=== PATIENT | male | born 1975 | race Caucasian/White ===

== ENCOUNTER 2016-04-30 | Inpatient (IN) | payer MEDICAID, OTHER ==
[~2016-04-30] VITALS: Ht 177.8 cm; Wt 72.1 kg
[2016-04-30 00:50] VITALS: BP 119/57; PULSE 100; RESP 18; TEMP 98.9; O2SAT 95
[2016-04-30] MEDS ORDERED: APIDINJ SQ (00:50)
[2016-04-30] MEDS ORDERED: LANTUS2P SQ (00:50)
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
[2016-04-30] MEDS: MORPHINE SULFATE 4 MG/ML INJ IV PRN ×6 (01:51→18:11)
[2016-04-30 06:37] VITALS: BP 119/70; PULSE 94; PULSE 98; RESP 18; O2SAT 100; O2SAT 98
[2016-04-30 07:30] VITALS: BP 121/75; PULSE 102; RESP 18; O2SAT 100
[2016-04-30] MEDS ORDERED: ENALAPRILAT 1.25 MG/ML VIAL IV PRN (07:30)
[2016-04-30] MEDS ORDERED: GLUCAGON 1 MG/ML VIAL OTHER PRN (07:30)
[2016-04-30] MEDS ORDERED: ONDANSETRON HCL 4 MG/2 ML VIAL IV PRN (07:30)
[2016-04-30] MEDS ORDERED: SODIUM CHLORIDE 0.9% FLUSH 10 ML FLUSH IV FLUSH PRN (07:30)
[2016-04-30] MEDS ORDERED: DEXTROSE 50% IN WATER 50 ML VIAL(D50) IV PUSH PRN (07:30)
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
[2016-04-30] MEDS: DOCUSATE SODIUM 50 MG/SENNA 8.6 MG TAB PO SCH (09:00)
[2016-04-30] MEDS: BACITRACIN TOP OINT 15 GM TUBE TOP SCH ×2 (09:00→22:31)
[2016-04-30] MEDS: KETOROLAC TROMETHAMINE 30 MG/ML (IVP) VIAL IVP SCH ×3 (09:05→21:50)
[2016-04-30] MEDS: METHOCARBAMOL 500 MG TAB PO SCH ×2 (09:05→18:09)
[2016-04-30] MEDS: FAMOTIDINE 20 MG TAB PO SCH ×2 (09:05→21:50)
[2016-04-30 09:42] LABS: HEMATOCRIT 36.2 % (39.0-51.0); MEAN CELL VOLUME 95.9 FL (80.0-100.0); MEAN CORPUSCULAR HEMOGLOBIN 33.9 PG (27.0-34.0); MEAN CORPUSCULAR HGB CONC 35.4 % (32.0-36.0); PLATELET COUNT 152 TH/MM3 (150-450); RED BLOOD COUNT 3.77 MIL/MM3 (4.50-5.90); RED CELL DISTRIBUTION WIDTH 13.7 % (11.6-17.2); REVIEW FLAG FINAL; WHITE BLOOD COUNT 6.8 TH/MM3 (4.0-11.0)
[2016-04-30 09:49] LABS: ANION GAP 11 MEQ/L (5-15); AST (GOT) 73 U/L (15-37); BICARBONATE 28.2 MEQ/L (21.0-32.0); BLOOD UREA NITROGEN 9 MG/DL (7-18); CHLORIDE 99 MEQ/L (98-107); GLOMERULAR FILTRATION RATE 130 ML/MIN (>89); SODIUM (NA) 138 MEQ/L (136-145)
[2016-04-30 09:52] LABS: ALKALINE PHOSPHATASE 44 U/L (45-117); ALT (GPT) 58 U/L (12-78); TOTAL BILIRUBIN ADULT 1.3 MG/DL (0.2-1.0)
[2016-04-30] MEDS: INSULIN NovoLIN REGULAR SUPPLEMENTAL SCALE SQ SCH ×3 (10:50→22:31)
[2016-04-30 12:00] VITALS: BP 118/73; PULSE 101; RESP 22; O2SAT 95
[2016-04-30 16:00] VITALS: BP 113/64; PULSE 96; RESP 16; TEMP 97.7; O2SAT 96
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
[2016-04-30 19:30] VITALS: BP 110/68; PULSE 111; RESP 18; TEMP 99.1; O2SAT 98
[2016-04-30] MEDS: oxyCODONE/ACETAMINOPHEN 5 MG/325 MG TAB PO PRN (21:49)
[2016-05-01] VITALS (8 sets, daily range): BP systolic 91–122; BP diastolic 54–87; PULSE 95–107; RESP 18–20; TEMP 97.2–100; O2SAT 93–100
[2016-05-01] MEDS: METHOCARBAMOL 500 MG TAB PO SCH ×3 (02:15→16:06)
[2016-05-01] MEDS: KETOROLAC TROMETHAMINE 30 MG/ML (IVP) VIAL IVP SCH ×4 (02:15→20:18)
[2016-05-01] MEDS: oxyCODONE/ACETAMINOPHEN 5 MG/325 MG TAB PO PRN ×3 (03:11→20:17)
[2016-05-01] MEDS: INSULIN NovoLIN REGULAR SUPPLEMENTAL SCALE SQ SCH ×4 (06:25→19:48)
[2016-05-01] MEDS: BACITRACIN TOP OINT 15 GM TUBE TOP SCH ×2 (09:00→20:18)
[2016-05-01] MEDS: FAMOTIDINE 20 MG TAB PO SCH ×2 (09:09→20:18)
[2016-05-01] MEDS: DOCUSATE SODIUM 50 MG/SENNA 8.6 MG TAB PO SCH (09:09)
[2016-05-01] MEDS: POLYETHYLENE GLYCOL 17 GM PKG PO SCH (09:15)
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
[2016-05-01] MEDS: MORPHINE SULFATE 4 MG/ML INJ IV PRN ×2 (12:12→14:51)
[2016-05-01] MEDS ORDERED: IOHEXOL 350 MG/ML 10 ML VIAL (for RAD DIAG) IV ONE (15:11)
--- NOTE | 2016-05-01 17:28 | RADRPT ---
EXAM DATE/TIME: 05/01/2016 15:07 [facility] COMPARISON: CHEST SINGLE AP, April 30, 2016, 7:32. INDICATIONS : Pulmonary contusion and hemothorax. IV CONTRAST: 73 cc Omnipaque 350 (iohexol) IV RADIATION DOSE: 9.89 CTDIvol (mGy) MEDICAL HISTORY : Diabetes mellitus type 2. SURGICAL HISTORY : None. ENCOUNTER: Initial ACUITY: 1 day PAIN SCALE: 6/10 LOCATION: Left lower chest TECHNIQUE: Volumetric scanning of the chest was performed. Using automated exposure control and adjustment of t he mA and/or kV according to patient size, radiation dose was kept as low as reasonably achievable to obtain optimal diagnostic quality images. FINDINGS: The examination demonstrates a large left pneumothorax. There are consolidative changes in the left l ower lobe. The right lung demonstrates an area of fairly diffuse infiltrate in the right lower lobe concerning f or contusion or aspiration. The cardiac and mediastinal contours are within normal limits. No adenopathy is seen. Bone windowed images demonstrate fracture of the left third through eighth lateral ribs with subcutan eous emphysema. The limited portions of upper abdomen visualized are unremarkable. CONCLUSION: 1. Large left pneumothorax. 2. Consolidation of the left lung base. 3. Contusion versus aspiration in the right lower lobe. 4. Fracture of the left third through eighth ribs with subcutaneous emphysema. Anshu Velez MD on May 01, 2016 at 17:01 Board Certified Radiologist. This report was verified electronically.
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
[2016-05-01] MEDS ORDERED: LIDOCAINE 1%/EPINEPHrine 1:100,000 SOLN 20 ML VIAL ONE (18:11)
[2016-05-01] MEDS ORDERED: MIDAZOLAM HCL 2 MG/2 ML VIAL ONE (18:14)
--- NOTE | 2016-05-01 19:01 | PD.RAD ---
Post Procedure Progress Note Pre Procedure Diagnosis: (1) Pneumothorax, left Post Procedure Diagnosis: (1) Pneumothorax, left Procedure Date: May 01, 2016 Supervising Radiologist: Anshu Velez Estimated blood loss: 5cc Anesthesia: Local, Conscious Sedation Plan of Activity Patient to Unit: Critical Care Patient Condition: Good Additional Comments: 20 [place]alan left chest tube placed Complete reinflation of the left lung Full dictated report to follow See PACS Report for procedural detail/treatment Anshu Velez MD May 01, 2016 19:01
--- NOTE | 2016-05-01 19:33 | RADRPT ---
EXAM DATE/TIME: 05/01/2016 19:09 [facility] COMPARISON: No previous studies available for comparison. INDICATIONS : Chest tube placement. MEDICAL HISTORY : Diabetes mellitus type II. SURGICAL HISTORY : None. ENCOUNTER: Subsequent ACUITY: 1 day PAIN SCORE: 3/10 LOCATION: chest FINDINGS: There is a left-sided chest tube with a tiny left apical pneumothorax. Bibasilar airspace disease pre sent. Air is present in the left chest wall. Multiple left rib fractures. CONCLUSION: 1. Left chest tube with tiny apical pneumothorax. Basal airspace disease. Multiple left rib fractures . Markos Jaimes MD on May 01, 2016 at 19:30 Board Certified Radiologist. This report was verified electronically.
[2016-05-02] MEDS: METHOCARBAMOL 500 MG TAB PO SCH ×3 (00:30→16:51)
[2016-05-02] MEDS: oxyCODONE/ACETAMINOPHEN 5 MG/325 MG TAB PO PRN ×4 (00:31→21:00)
[2016-05-02] MEDS: KETOROLAC TROMETHAMINE 30 MG/ML (IVP) VIAL IVP SCH ×4 (04:57→20:47)
[2016-05-02] MEDS: INSULIN NovoLIN REGULAR SUPPLEMENTAL SCALE SQ SCH ×2 (06:07→11:00)
[2016-05-02 06:11] VITALS: BP 108/65; PULSE 101; RESP 18; TEMP 98.3; O2SAT 97
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
[2016-05-02] MEDS ORDERED: VANCOMYCIN HCL 1000 MG VIAL ONE (08:03)
[2016-05-02] MEDS ORDERED: SODIUM CHLOR 0.9% 250 ML INJ 250 ML ONE (08:04)
[2016-05-02] MEDS ORDERED: GENTAMICIN SULFATE 80 MG/2 ML VIAL ONE (08:04)
[2016-05-02] MEDS ORDERED: BUPIVACAINE/EPINEPHRINE 0.25% PF 10 ML VIAL ONE (08:04)
--- NOTE | 2016-05-02 08:05 | RADRPT ---
EXAM DATE/TIME: 05/02/2016 07:28 [facility] COMPARISON: CT THORAX W CONTRAST, May 01, 2016, 15:07. CHEST EXPIRATION ONLY, May 01, 2016, 19:09. INDICATIONS : Pneumothorax. MEDICAL HISTORY : None. SURGICAL HISTORY : None. ENCOUNTER: Subsequent ACUITY: 2 days PAIN SCORE: 6/10 LOCATION: Left Ribs. FINDINGS: Single view of the chest demonstrates a left-sided chest tube in good position. There is no residual pneumothorax. There are atelectatic changes in the left lower lobe. There is a small amount of subcut aneous emphysema along the left chest wall. There are known multiple left rib fractures which are aga in visible. CONCLUSION: 1. Left chest tube in good position with no evidence of residual pneumothorax. 2. Atelectatic changes in the left lower lobe. Anhsu Velez MD on May 02, 2016 at 8:02 Board Certified Radiologist. This report was verified electronically.
[2016-05-02] MEDS ORDERED: MIDAZOLAM HCL 2 MG/2 ML VIAL ONE (08:09)
[2016-05-02] MEDS ORDERED: FAMOTIDINE 20 MG/2 ML VIAL ONE (08:09)
--- NOTE | 2016-05-02 08:09 | RADRPT ---
EXAM DATE/TIME: 05/01/2016 18:40 INDICATIONS : Left sided pneumothorax. SEDATION TIME: 15 minutes MEDICATION(S): 1.) 2 mg midazolam (Versed) IV 2.) 100 mcg fentanyl (Sublimaze) IV DEVICE(S): 1.) 20fr Trocar MEDICAL HISTORY : None. SURGICAL HISTORY : None. ENCOUNTER: Initial ACUITY: 1 day PAIN SCORE: 5/10 LOCATION: Left chest PROCEDURE: PROCEDURE : 1. CT guided chest tube placement. 2. Conscious sedation with continuous EKG and oximetry monitoring. The risks, benefits and alternatives to the procedure were explained and verbal and written consent w as obtained. The site was prepped in sterile fashion. Full sterile technique was used, including ca p, mask, sterile gloves and gown and a large sterile sheet. Hand hygiene and 2% chlorhexidine and/or betadine/alcohol prep was utilized per protocol for cutaneous antisepsis. The skin and subcutaneous tissues were infiltrated with local anesthetic solution. Using automated exposure control and adjus tment of the mA and/or kV according to patient size, radiation dose was kept as low as reasonably ach ievable to obtain optimal diagnostic quality images. With CT guidanc a suitable site along the left chest wall was selected. The skin in the midaxillary l ine was anesthetized with 15 cc 1% lidocaine. A small incision was made. A 20 [place] chest tube was a dvanced through the incision and into the thorax without difficulty. Wall suction was applied. Post procedure images demonstrate satisfactory position of the tube and complete reinflation of the left l jordan.. The catheter was sutured in place and a dressing was applied. Note is again made of the area of contusion or infiltrate in the right lower lobe and consolidative c hanges in the left lower lobe. Conscious sedation was performed with the prescribed dosages and duration as above. The patient lindsey ated the procedure well and there were no complications. EKG and oximetry remained stable throughout the procedure. The patient was sent to post anesthesia recovery in stable condition. CONCLUSION: Uncomplicated chest tube placement as above. Anshu Velez MD on May 02, 2016 at 8:04 Board Certified Radiologist. This report was verified electronically.
[2016-05-02] MEDS ORDERED: fentaNYL CITRATE 250 MCG/5 ML AMP ONE (08:36)
[2016-05-02] MEDS ORDERED: DEXAMETHASONE SOD PHOS 20 MG/5 ML VIAL ONE (08:36)
[2016-05-02] MEDS ORDERED: ACETAMINOPHEN 1000 MG/100 ML VIAL IV ONE (08:36)
[2016-05-02 08:37] VITALS: BP 117/63; PULSE 94; RESP 17; TEMP 98.3; O2SAT 94
[2016-05-02] MEDS ORDERED: DEXAMETHASONE SOD PHOS 4 MG/ML VIAL ONE (08:37)
[2016-05-02] MEDS: DOCUSATE SODIUM 50 MG/SENNA 8.6 MG TAB PO SCH ×3 (09:00→20:47)
[2016-05-02] MEDS: BACITRACIN TOP OINT 15 GM TUBE TOP SCH ×2 (09:00→20:56)
[2016-05-02] MEDS: POLYETHYLENE GLYCOL 17 GM PKG PO SCH ×2 (09:00→14:00)
[2016-05-02] MEDS: FAMOTIDINE 20 MG TAB PO SCH ×2 (09:00→20:47)
[2016-05-02] MEDS ORDERED: ceFAZolin 2 GM PREMIX 50 ML ONE (09:33)
[2016-05-02] MEDS ORDERED: HYDR-3366 PO (10:45)
--- NOTE | 2016-05-02 10:51 | PD.OP ---
cc: Sunny Suarez MD Operative Report Date of Surgery: May 02, 2016 Preoperative Diagnosis: Displaced left clavicle fracture Postoperative Diagnosis: Procedure: Open reduction internal fixation left clavicle Anesthesia: Gen. Surgeon: Sunny Suarez Shank Threader(s): PAYAL Pérez PA-C The surgical procedure was assisted by my physician doctor's assistant. My P.A. presence was necessary throughout this case for the manipulation and positioning of the surgical extremity. My P.A. was assisting me throughout the duration of this procedure. The skill set of a physician doctor's assistant was medically necessary to complete this procedure. During the surgical case the surgical scrub technician was working at the back table and the physician doctor's assistant was directly assisting me. Operation and Findings: Patient was seen and evaluated preoperatively. Patient was found to have a displaced clavicle fracture. The risks and benefits of surgical and nonsurgical options were discussed in detail and informed consent was obtained for surgery. Patient was brought to the operating room and placed on or table. IV sedation and GETA were administered by anesthesiologist. Antibiotics were given prior to incision. Operative arm and shoulder were prepped with alcohol followed by Hibiclens and draped usual sterile fashion. Timeout procedure was performed. Procedure began with a 4 inch incision over the anterior clavicle. Subcutaneous tissue was dissected with Bovie. The fracture was now visualized. Soft tissue was retracted. Fracture was cleaned with curettes. Attention was now turned to reduction. Gentle traction was applied and fracture tenaculums were used to reduce the fracture. Fracture was manipulated to achieve excellent reduction. Multiplanar fluoroscopy confirmed well aligned fracture. K wires were used to hold provisional fixation. A Synthes distal clavicle plate was selected. Plate was provisionally held in place K wires. 3.5 cortical screws were used to compress plate to bone. A 2.7 cortical screw was used to compress the plate to bone distally. Fluoroscopy confirmed appropriate plate placement and fracture reduction. Multiple screws were placed on each side of the fracture. Multiple locking screws were placed into the distal segment of the clavicle. All Screws were predrilled and premeasured for appropriate length. Care was taken to avoid injury to neurovascular structures. Final fluoroscopy revealed well aligned fracture with well-placed hardware. Wound was thoroughly irrigated. Fascia was closed with #1 Vicryl, subcutaneous tissues closed with 3-0 Vicryl, and skin was closed with arthur. Sterile dressings were applied. Patient was placed into a sling. Patient was awakened and transferred to recovery in stable condition. Needle and sponge counts were correct. Sunny Suarez MD May 02, 2016 10:50
--- NOTE | 2016-05-02 11:40 | RADRPT ---
EXAM DATE/TIME: 05/02/2016 10:28 [facility] COMPARISON: CHEST EXPIRATION ONLY, May 02, 2016, 7:28. INDICATIONS : Surgical repair. MEDICAL HISTORY : None. SURGICAL HISTORY : None. ENCOUNTER: Initial ACUITY: 1 day PAIN SCORE: Non-responsive. LOCATION: Left clavicle. FINDINGS: Intraoperative films demonstrate excellent alignment of the patient's left clavicular fracture post p lating. CONCLUSION: 1. Excellent alignment of the clavicle post plating. Anshu Velez MD on May 02, 2016 at 11:38 Board Certified Radiologist. This report was verified electronically.
[2016-05-02] MEDS ORDERED: DO NOT ADM ANY ANTICOAGULANT DRUGS XX PRN (12:00)
[2016-05-02] MEDS ORDERED: NEOSTIGMINE 3 MG/3 ML SYR IV ONE (12:00)
[2016-05-02] MEDS ORDERED: ePHEDrine/NS 25 MG/5 ML SYR IV ONE (12:00)
[2016-05-02] MEDS ORDERED: ONDANSETRON HCL 4 MG/2 ML VIAL IV PUSH ONE (12:00)
[2016-05-02] MEDS ORDERED: PROPOFOL 200 MG/20 ML AMP IV ONE (12:00)
[2016-05-02] MEDS ORDERED: INSULIN GLULISINE 1 UNIT SQ SCH (13:00)
[2016-05-02] MEDS: CALCIUM/VITAMIN D 250 MG/125 U TAB PO SCH ×2 (13:48→17:44)
[2016-05-02] MEDS: MORPHINE SULFATE 4 MG/ML INJ IV PRN (13:49)
[2016-05-02 16:00] VITALS: BP 113/61; PULSE 95; RESP 18; TEMP 96.9; O2SAT 94
[2016-05-02] MEDS: ceFAZolin 2 GM PREMIX 50 ML IV SCH (17:44)
[2016-05-02] MEDS ORDERED: GLUCAGON 1 MG/ML VIAL OTHER PRN (17:45)
[2016-05-02] MEDS: MORPHINE SULFATE 4 MG/ML INJ IV PUSH PRN ×2 (17:45→20:47)
[2016-05-02] MEDS ORDERED: DEXTROSE 50% IN WATER 50 ML VIAL(D50) IV PUSH PRN (17:45)
[2016-05-02 18:12] VITALS: O2SAT 94
[2016-05-02 20:00] VITALS: BP 120/63; PULSE 94; RESP 20; TEMP 96; O2SAT 96
[2016-05-02] MEDS: SODIUM CHLORIDE 0.9% FLUSH 5 ML FLUSH IVF SCH (20:48)
[2016-05-02] MEDS: INSULIN ASPART SUPPLEMENTAL SCALE SQ SCH (23:13)
[2016-05-03] VITALS (7 sets, daily range): BP systolic 101–125; BP diastolic 57–75; PULSE 83–104; RESP 18–20; TEMP 96.5–97.6; O2SAT 96–97
[2016-05-03] MEDS: ceFAZolin 2 GM PREMIX 50 ML IV SCH ×2 (00:17→10:00)
[2016-05-03] MEDS: MORPHINE SULFATE 4 MG/ML INJ IV PUSH PRN ×3 (00:17→16:05)
[2016-05-03] MEDS: METHOCARBAMOL 500 MG TAB PO SCH ×3 (00:17→16:10)
[2016-05-03] MEDS: SODIUM CHLORIDE 0.9% FLUSH 5 ML FLUSH IVF PRN ×3 (00:18→20:56)
[2016-05-03] MEDS: oxyCODONE/ACETAMINOPHEN 5 MG/325 MG TAB PO PRN ×4 (00:26→18:35)
[2016-05-03] MEDS: KETOROLAC TROMETHAMINE 30 MG/ML (IVP) VIAL IVP SCH ×4 (04:32→20:55)
[2016-05-03] MEDS: MORPHINE SULFATE 4 MG/ML INJ IV PRN ×3 (04:36→20:48)
[2016-05-03 06:14] LABS: AUTOMATED NEUTROPHIL # 9.5 TH/MM3 (1.8-7.7); BASOPHIL % 0.3 % (0.0-2.0); EOSINOPHIL % 0.2 % (0.0-4.0); HEMATOCRIT 33.8 % (39.0-51.0); HEMO FLAGS DIFF FINAL; LYMPH % 9.7 % (9.0-44.0); LYMPHOCYTE # 1.2 TH/MM3 (1.0-4.8); MEAN CELL VOLUME 99.8 FL (80.0-100.0); MEAN CORPUSCULAR HEMOGLOBIN 33.5 PG (27.0-34.0); MEAN CORPUSCULAR HGB CONC 33.5 % (32.0-36.0); MONO % 10.2 % (0.0-8.0); NEUT % 79.6 % (16.0-70.0); PLATELET COUNT 173 TH/MM3 (150-450); RED BLOOD COUNT 3.38 MIL/MM3 (4.50-5.90); RED CELL DISTRIBUTION WIDTH 13.5 % (11.6-17.2); WHITE BLOOD COUNT 11.9 TH/MM3 (4.0-11.0)
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
[2016-05-03] MEDS: INSULIN ASPART SUPPLEMENTAL SCALE SQ SCH ×4 (06:44→22:11)
[2016-05-03 06:59] LABS: ALKALINE PHOSPHATASE 65 U/L (45-117); ALT (GPT) 35 U/L (12-78); ANION GAP 20 MEQ/L (5-15); AST (GOT) 35 U/L (15-37); BICARBONATE 18.3 MEQ/L (21.0-32.0); BLOOD UREA NITROGEN 19 MG/DL (7-18); CHLORIDE 98 MEQ/L (98-107); GLOMERULAR FILTRATION RATE 85 ML/MIN (>89); POTASSIUM 4.8 MEQ/L (3.5-5.1); SODIUM (NA) 136 MEQ/L (136-145); TOTAL BILIRUBIN ADULT 0.9 MG/DL (0.2-1.0)
--- NOTE | 2016-05-03 07:24 | PD.ORT.PN ---
Subjective Subjective Remarks Yony is status post open reduction internal fixation left distal clavicle fracture on 05/02/16. He is awake and alert. Pain is relatively well controlled. Objective Vitals Vital Signs Date Time Temp Pulse Resp B/P Pulse Ox O2 Delivery O2 Flow Rate FiO2 05/03/16 04:00 97.6 100 20 102/62 96 05/03/16 00:00 96.5 104 20 112/57 96 05/02/16 20:00 96.0 94 20 120/63 96 05/02/16 18:12 94 21 05/02/16 16:00 96.9 95 18 113/61 94 05/02/16 12:00 89 18 112/66 95 Room Air 05/02/16 11:45 88 18 119/67 95 Room Air 05/02/16 11:30 87 18 114/65 96 Room Air 05/02/16 11:15 86 18 118/68 94 Room Air 05/02/16 10:59 98.1 96 18 121/71 97 Simple Mask 8 05/02/16 08:37 98.3 94 17 117/63 94 I/O 05/02/16 05/02/16 05/02/16 05/03/16 05/03/16 05/03/16 07:00 15:00 23:00 07:00 15:00 23:00 Intake Total 1240 ml 240 ml 240 ml Output Total 456 ml 50 ml 625 ml 400 ml Balance -456 ml 1190 ml -385 ml -160 ml Intake Oral 240 ml 240 ml 240 ml Other 1000 ml Output Urine Total 400 ml 500 ml 400 ml Chest Tube Drainage Total 56 ml 125 ml Estimated Blood Loss 50 ml # Voids 4 3 # Bowel Movements 0 0 0 Result Diagram: 05/03/1623 05/03/16 0523 Imaging Last 24 hours Impressions Chest X-Ray 05/03/16 0600 Signed Impressions: Service Date/Time: Tuesday, May 03, 2016 05:38 - CONCLUSION: 1. Some improvement in the bibasilar consolidations. 2. Left thoracostomy tube without pneumothorax. Dat Charlton Jr., MD Objective Remarks Yony is awake and alert. He appears comfortable LUE: Clean dry dressing intact. Intact sensation in all fingers. Radial pulses palpable. Assessment & Plan Assessment and Plan 1) Left Distal Clavicle Fx--status post ORIF on 05/02/16 Sling No use of left arm Clear for discharge from orthopedic standpoint once chest tube was removed Follow-up 2 weeks Sunny Lorenzana MD May 03, 2016 07:24
[2016-05-03] MEDS ORDERED: BISACODYL 10 MG SUPP RECTAL ONE (08:00)
[2016-05-03] MEDS ORDERED: BISACODYL EC 5 MG TABEC PO ONE (08:00)
[2016-05-03] MEDS: FAMOTIDINE 20 MG TAB PO SCH ×2 (08:19→20:52)
[2016-05-03] MEDS: CALCIUM/VITAMIN D 250 MG/125 U TAB PO SCH ×3 (08:19→16:11)
[2016-05-03] MEDS: ENOXAPARIN SODIUM 30 MG/0.3 ML SYRINGE SQ SCH ×2 (08:19→20:46)
[2016-05-03] MEDS: DOCUSATE SODIUM 50 MG/SENNA 8.6 MG TAB PO SCH ×2 (08:19→20:51)
[2016-05-03] MEDS: SODIUM CHLORIDE 0.9% FLUSH 5 ML FLUSH IVF SCH ×2 (08:20→20:49)
[2016-05-03] MEDS: POLYETHYLENE GLYCOL 17 GM PKG PO SCH (08:20)
[2016-05-03] MEDS: BACITRACIN TOP OINT 15 GM TUBE TOP SCH ×2 (08:33→21:00)
[2016-05-03] MEDS ORDERED: INSULIN DETEMIR 100 UNITS/ML VIAL SQ SCH (09:00)
--- NOTE | 2016-05-03 11:01 | EKG ---
Date Performed: 05/02/2016 Time Performed: 06:22:50 PTAGE: 41 years EKG: Sinus rhythm Normal ECG NO PREVIOUS TRACING DOCTOR: Maggie Mccauley Interpretating Date/Time 05/03/2016 10:58:18
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
[2016-05-03] MEDS ORDERED: DEXTROSE 50% IN WATER 50 ML VIAL(D50) IV PUSH PRN (13:45)
[2016-05-03] MEDS ORDERED: GLUCAGON 1 MG/ML VIAL OTHER PRN (13:45)
[2016-05-03] MEDS: INSULIN DETEMIR 100 UNITS/ML VIAL SQ SCH (20:52)
[2016-05-03] MEDS ORDERED: MAGNESIUM HYDROXIDE SUSP 30 ML CUP PO SCH (21:00)
[2016-05-03] MEDS ORDERED: SENN1TAB PO (21:55)
[2016-05-03] MEDS ORDERED: MILKSUS PO (21:55)
[2016-05-03] MEDS: ACETAMINOPHEN/HYDROcodone 325 MG/10 MG TAB PO PRN (22:18)
[2016-05-04] MEDS: METHOCARBAMOL 500 MG TAB PO SCH ×2 (00:18→09:11)
[2016-05-04] MEDS: MORPHINE SULFATE 4 MG/ML INJ IV PRN ×2 (00:21→06:57)
[2016-05-04] MEDS: SODIUM CHLORIDE 0.9% FLUSH 5 ML FLUSH IVF PRN (00:22)
[2016-05-04 00:27] VITALS: BP 120/66; PULSE 89; RESP 20; TEMP 97.3; O2SAT 96
[2016-05-04] MEDS: KETOROLAC TROMETHAMINE 30 MG/ML (IVP) VIAL IVP SCH ×3 (02:47→15:25)
[2016-05-04] MEDS: oxyCODONE/ACETAMINOPHEN 5 MG/325 MG TAB PO PRN (02:54)
[2016-05-04 06:03] VITALS: BP 113/60; PULSE 81; RESP 20; TEMP 96.5; O2SAT 95
[2016-05-04 06:09] LABS: ANION GAP 6 MEQ/L (5-15); BLOOD UREA NITROGEN 18 MG/DL (7-18); CHLORIDE 107 MEQ/L (98-107); GLOMERULAR FILTRATION RATE 116 ML/MIN (>89); POTASSIUM 3.3 MEQ/L (3.5-5.1); SODIUM (NA) 143 MEQ/L (136-145)
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
[2016-05-04] MEDS: INSULIN ASPART SUPPLEMENTAL SCALE SQ SCH ×3 (07:00→16:00)
--- NOTE | 2016-05-04 07:13 | PD.ORT.PN ---
Subjective Subjective Remarks POD 2 s/p ORIF left distal clavicle doing well. pain controlled. no complaints. Objective Vitals Vital Signs Date Time Temp Pulse Resp B/P Pulse Ox O2 Delivery O2 Flow Rate FiO2 05/04/16 06:03 96.5 81 20 113/60 95 05/04/16 04:01 16 05/04/16 04:01 16 05/04/16 00:46 16 05/04/16 00:27 97.3 89 20 120/66 96 05/03/16 23:35 16 05/03/16 20:00 96.8 83 20 125/75 97 05/03/16 17:22 96.8 91 18 110/67 97 05/03/16 12:57 97.6 92 18 109/60 96 05/03/16 08:59 97 21 05/03/16 08:30 97.0 103 18 101/61 97 I/O 05/03/16 05/03/16 05/03/16 05/04/16 05/04/16 05/04/16 07:00 15:00 23:00 07:00 15:00 23:00 Intake Total 240 ml 650 ml 240 ml Output Total 450 ml Balance -210 ml 650 ml 240 ml Intake Oral 240 ml 600 ml 240 ml IV Total 50 ml Output Urine Total 400 ml Chest Tube Drainage Total 50 ml # Voids 3 1 1 # Bowel Movements 0 0 0 Result Diagram: 05/03/16 0523 05/04/16 0518 Imaging Last 24 hours Impressions Chest X-Ray 05/03/16 0600 Signed Impressions: Service Date/Time: Tuesday, May 03, 2016 05:38 - CONCLUSION: 1. Some improvement in the bibasilar consolidations. 2. Left thoracostomy tube without pneumothorax. Dat Charlton Jr., MD Objective Remarks LUE: dressing clean and dry. intact. NVI Assessment & Plan Assessment and Plan 1) Left Distal Clavicle Fx--status post ORIF on 05/02/16 - POD 2 Sling No use of left arm Clear for discharge from orthopedic standpoint once chest tube removed Follow-up 2 weeks with ortho back home in [place] May 04, 2016 07:13
[2016-05-04] MEDS ORDERED: POTASSIUM CHLORIDE 20 MEQ CONTROLLED RELEASE TAB PO ONE (08:15)
[2016-05-04 08:32] VITALS: BP 103/63; PULSE 86; RESP 18; TEMP 96; O2SAT 95
[2016-05-04] MEDS: SODIUM CHLORIDE 0.9% FLUSH 5 ML FLUSH IVF SCH (09:00)
[2016-05-04] MEDS ORDERED: LACTULOSE SYRUP 20 GM/30 ML CUP PO SCH (09:00)
[2016-05-04] MEDS: ENOXAPARIN SODIUM 30 MG/0.3 ML SYRINGE SQ SCH (09:10)
[2016-05-04] MEDS: ACETAMINOPHEN/HYDROcodone 325 MG/10 MG TAB PO PRN ×2 (09:11→13:47)
[2016-05-04] MEDS: FAMOTIDINE 20 MG TAB PO SCH (09:11)
[2016-05-04] MEDS: CALCIUM/VITAMIN D 250 MG/125 U TAB PO SCH ×2 (09:11→12:14)
[2016-05-04] MEDS: DOCUSATE SODIUM 50 MG/SENNA 8.6 MG TAB PO SCH (09:12)
[2016-05-04] MEDS: POLYETHYLENE GLYCOL 17 GM PKG PO SCH (09:12)
[2016-05-04] MEDS: INSULIN DETEMIR 100 UNITS/ML VIAL SQ SCH (09:13)
[2016-05-04] MEDS: BACITRACIN TOP OINT 15 GM TUBE TOP SCH (09:13)
[2016-05-04 12:42] VITALS: BP 107/62; PULSE 83; RESP 18; TEMP 95.9; O2SAT 90
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
[2016-05-04 14:31] LABS: HEMOGLOBIN A1a 1.1 %; HEMOGLOBIN A1b 0.8 %; HEMOGLOBIN Ao 82.3 %; HEMOGLOBIN F 1.6 %; HEMOGLOBIN LA1C 2.2 %; HEMOGLOBIN P3 4.3 %
--- NOTE | 2016-05-04 15:00 | RADRPT ---
EXAM DATE/TIME: 05/04/2016 13:49 [place] COMPARISON: CHEST SINGLE AP, May 04, 2016, 6:04. INDICATIONS : Chest tube removal, medical clearance for discharge. MEDICAL HISTORY : Diabetes mellitus type 2. SURGICAL HISTORY : Clavicle fracture repair. ENCOUNTER: Initial ACUITY: 4 - 6 days PAIN SCORE: 0/10 LOCATION: Chest. FINDINGS: Single AP view of the chest demonstrates interval removal of the apical chest tube. No visualized pne umothorax. There is persistent hazy opacity of the left hemithorax which may reflect contusion. Stabl e appearance of the air within the left lateral soft tissues. Stable fixation of left clavicular frac ture. CONCLUSION: Interval removal of a left-sided chest tube with no visible pneumothorax remaining. Leanna Gonzalez MD on May 04, 2016 at 14:58 Board Certified Radiologist. This report was verified electronically.
[2016-05-04 16:19] VITALS: BP 109/61; PULSE 62; RESP 18; TEMP 99.4; O2SAT 93
== END 2016-05-04 16:26 | disposition home or self-care (01) | DRG 515 ==
LOC: NEPE → NEDA 00:48 → INTOOBSV 00:48 → NEDH 04:48 → N05B 14:19 → OBSVTOIN 05-02 17:01
PROVIDERS: ADMIT Surgery; ATTEND Surgery
PROC: 0W9B30Z Drainage of Left Pleural Cavity with Drainage Device, Percutaneous Approach (ICD-10-PCS; 2016-05-01)
PROC: 0PSB04Z Reposition Left Clavicle with Internal Fixation Device, Open Approach (ICD-10-PCS; principal; 2016-05-02 09:24)
DX: S42.032A Displaced fracture of lateral end of left clavicle, initial encounter for closed fracture (principal); S27.2XXA Traumatic hemopneumothorax, initial encounter; S27.321A Contusion of lung, unilateral, initial encounter; S22.42XA Multiple fractures of ribs, left side, initial encounter for closed fracture; E11.65 Type 2 diabetes mellitus with hyperglycemia; F17.210 Nicotine dependence, cigarettes, uncomplicated; V28.4XXA Motorcycle driver injured in noncollision transport accident in traffic accident, initial encounter; Y92.410 Unspecified street and highway as the place of occurrence of the external cause; Z79.4 Long term (current) use of insulin; Z88.0 Allergy status to penicillin
CPT/HCPCS: 32557; 71010; 71260; 73000; 76000; 80048; 80053; 82948; 83036; 83735; 85025; 85027; 93005; 94150; 99152; 99285; C1713; G0378; J0131; J0690; J1100; J1580; J1650; J1815; J1885; J2250; J2270; J2405; J2710; J3010; J3370; J7050; Q9967